=== PATIENT | female | born 1965 | race Caucasian/White ===

== ENCOUNTER 2016-11-29 22:23 | Emergency (ER) | payer BC ==
[~2016-11-29] VITALS: Ht 165.1 cm; Wt 82.1 kg
[~2016-11-29 22:23] MED LIST: DOXYCYCLINE HY100 M1 PO; NOHOMEMEDS; PROVENTIL17 GM IH
[2016-11-29 23:20] LABS: HEMATOCRIT 41.2 % (36.0-46.0); MCH 30.5 PG (29.0-34.0); MCHC 33.7 G/DL (30.0-36.0); MCV 90.5 FL (83-99); MEAN PLAT.VOLUME 8.9 uM^3 (9.5-12.4); PLATELET COUNT 334 K/uL (156-360); RBC DIS.WIDTH-CV 12.3 % (11.8-14.6); RBC DIS.WIDTH-SD 40.3 % (39-53); RED BLOOD COUNT 4.55 M/uL (3.80-5.20); WHITE BLOOD COUNT 10.5 K/uL (4.1-10.2)
[2016-11-29 23:27] LABS: D-DIMER ELISA < 150.00 ng/mLDDU (<230)
[2016-11-29 23:39] LABS: CHLORIDE 105 mEq/L (99-109); POTASSIUM 3.9 mEq/L (3.7-5.4); SODIUM 142 mEq/L (136-147); TROP-I INTERPRETATION NEGATIVE; TROPONIN-I < 0.01 ng/mL (0.0-0.30)
[2016-11-29 23:41] LABS: GLUCOSE 104 mg/dL (70-99)
[2016-11-29 23:42] LABS: ANION GAP 12 MEQ/L (2-14)
[2016-11-29 23:45] LABS: GFR ESTIMATE (CALCULATED) > 59 mL/min/
[2016-11-29 23:46] LABS: UREA NITROGEN (BUN) 11 mg/dL (9-23)
[2016-11-30 01:00] LABS: MAGNESIUM 2.2 mg/dL (1.3-2.7)
[2016-11-30 01:55] LABS: TROP-I INTERPRETATION NEGATIVE; TROPONIN-I 0.02 ng/mL (0.0-0.30)
[2016-11-30 02:33] VITALS: BP 121/67
== END 2016-11-30 02:35 | disposition home or self-care (01) ==
LOC: EME 22:23
PROVIDERS: Emergency Medicine
DX: R07.89 Other chest pain (principal); F17.200 Nicotine dependence, unspecified, uncomplicated; Z71.6 Tobacco abuse counseling; R00.2 Palpitations; M25.512 Pain in left shoulder; M79.602 Pain in left arm; R06.02 Shortness of breath
CPT/HCPCS: 71020; 80048; 83735; 84100; 84484; 85027; 85379; 93005; 99281; 99284

== ENCOUNTER → 2017-04-12 | Outpatient (CLI) | payer BC ==
[~2017-04-12] VITALS: Ht 165.1 cm; Wt 85.3 kg
[~2017-04-12] MED LIST changes: +OSTERA TABLET1 EACH PO
[2017-04-12 15:34] LABS: HEMATOCRIT 40.3 % (36.0-46.0); HEMOGLOBIN 13.5 G/DL (11.9-15.5); MCH 30.4 PG (29.0-34.0); MCHC 33.5 G/DL (30.0-36.0); MCV 90.8 FL (83-99); RBC DIS.WIDTH-CV 12.3 % (11.8-14.6); RBC DIS.WIDTH-SD 40.4 % (39-53); RED BLOOD COUNT 4.44 M/uL (3.80-5.20); WHITE BLOOD COUNT 7.4 K/uL (4.1-10.2)
[2017-04-12 15:42] LABS: PTT 29.2 SEC (25-37)
[2017-04-12 16:02] LABS: PLATELET COUNT 193 K/uL (156-360)
== END | disposition home or self-care (01) ==
LOC: AMB 14:20
PROVIDERS: Internal Medicine Pulmonary Disease
PROC: 0BJ08ZZ Inspection of Tracheobronchial Tree, Via Natural or Artificial Opening Endoscopic (ICD-10-PCS; principal; 2017-04-12)
DX: R04.2 Hemoptysis (principal); F17.200 Nicotine dependence, unspecified, uncomplicated; E66.9 Obesity, unspecified; Z68.31 Body mass index [BMI] 31.0-31.9, adult; J30.9 Allergic rhinitis, unspecified; Z82.49 Family history of ischemic heart disease and other diseases of the circulatory system; Z83.3 Family history of diabetes mellitus; Z88.1 Allergy status to other antibiotic agents; Z88.8 Allergy status to other drugs, medicaments and biological substances
CPT/HCPCS: 85027; 85610; 85730; J0461; J2175; J2250; J2550; J3010